=== PATIENT | female | born 2000 | race Two or more races ===

== ENCOUNTER → 2024-12-31 | Outpatient (CLI) | payer OTHER, SELFPAY ==
--- NOTE | 2024-12-31 14:30 | XR_ITS ---
Examination: Breast ultrasound, unilateral, left complete Date and time of exam: December 31, 2024 1557 hours INDICATIONS: Palpable lump left breast 2:00 position note is beginning several years ago Technique: Real-time pittman scale ultrasonographic imaging performed left breast including all 4 quadrants as well as nipple retroareolar and axillary region. Findings: 2:00 circumscribed nodule 9 x 10 mm IMPRESSION: BI-RADS Category 3: Probably benign findings One additional 6 month left breast sonogram follow-up strongly recommended to document stability of 2:00 nodule described above
== END | disposition home or self-care (01) ==
PROVIDERS: PCP Physician Assistant; Referring Provider Physician Assistant; Visit Provider Physician Assistant
DX: N63.21 Unspecified lump in the left breast, upper outer quadrant (principal)
CPT/HCPCS: 76641